=== PATIENT | female | born 1930 | race Caucasian/White ===

== ENCOUNTER 2019-08-20 10:31 | Emergency (ER) | payer MEDICARE, OTHER ==
[~2019-08-20] VITALS: Ht 162.6 cm; Wt 52.2 kg
[2019-08-20 10:56] LABS: MONOCYTES # (AUTO) 0.7 /CMM (0.1-1.30); NEUTROPHILS # (AUTO) 1.5 /CMM (1.8-8.9)
[2019-08-20 10:58] LABS: BASOPHILS % (AUTO) 1.1 % (0.0-2.0); EOSINOPHILS % (AUTO) 8.1 % (0.0-6.0); HEMATOCRIT 46 % (33-45); HEMOGLOBIN 15.4 g/dL (11.5-14.8); LYMPHOCYTES # (AUTO) 1.2 /CMM (0.8-4.8); LYMPHOCYTES % (AUTO) 32.7 % (20.0-44.0); MEAN CORPUSCULAR HGB CONC 33 g/dl (31.0-36.0); MEAN CORPUSCULAR VOLUME 96 fL (82-100); MONOCYTES % (AUTO) 17.5 % (2.0-12.0); NEUTROPHILS % (AUTO) 40.6 % (43.0-81.0); PLATELET COUNT (AUTO) 136 /CMM (150-450); RED BLOOD CELL COUNT(AUTO) 4.86 MIL/uL (4.0-5.2); WHITE BLOOD COUNT (AUTO) 3.7 K/uL (4.3-11.0)
--- NOTE | 2019-08-20 11:00 | NUR ---
BIB [facility], C/O CHEST PRESSURE ON THE WAY TO A DOCTOR'S APPOINTMENT, DENIES ANY PAIN AT THIS TIME, CONNECTED TO THE MONITOR AND PULSE OX. KEPT COMFORTABLE, WILL CONTINUE TO MONITOR ACCORDINGLY.
[2019-08-20 11:17] LABS: CARBON DIOXIDE 32 mmol/L (21-32); CHLORIDE 106 mmol/L (98-107); CREATININE 0.7 mg/dL (0.6-1.3); GLUCOSE 74 mg/dL (74-106); POTASSIUM 4.6 mmol/L (3.5-5.1); SODIUM SERUM 143 mmol/L (136-145); UREA NITROGEN, BLOOD 20 mg/dL (7-18)
[2019-08-20 11:42] LABS: EOSINOPHILS % (MANUAL) 6 % (0-4); LYMPHOCYTES % (MANUAL) 36 % (16-48); MONOCYTES % (MANUAL) 12 % (0-11.0); NEUTROPHILS % (MANUAL) 46 (42-76)
[2019-08-20] MEDS ORDERED: ALPRAZOLAM 0.25 MG TABLET ONE (11:57)
[2019-08-20] MEDS ORDERED: LORAZEPAM 0.5 MG TABLET ONE (12:00)
[2019-08-20] MEDS ORDERED: ALPRAZOLAM 0.25 MG TABLET PO ONE (12:00)
[2019-08-20] MEDS ORDERED: LORAZEPAM 0.5 MG TABLET PO ONE (12:30)
[2019-08-20 16:33] VITALS: BP 120/71
--- NOTE | 2019-08-20 16:34 | NUR ---
Patient discharged to home in stable condition. Written and verbal after care instructions given. Patient verbalizes understanding of instruction.IV removed. Catheter intact and site benign. Pressure and 4x4 applied to site. No bleeding noted.
== END 2019-08-20 16:33 | disposition home or self-care (01) ==
LOC: ER 10:34
DX: I48.91 Unspecified atrial fibrillation (principal); F41.9 Anxiety disorder, unspecified; F03.90 Unspecified dementia, unspecified severity, without behavioral disturbance, psychotic disturbance, mood disturbance, and anxiety; J44.9 Chronic obstructive pulmonary disease, unspecified; Z88.2 Allergy status to sulfonamides; Z91.048 Other nonmedicinal substance allergy status
CPT/HCPCS: 36415; 71045-TC; 80048-TC; 84484-TC; 85025-TC